=== PATIENT | female | born 1950 | race Caucasian/White ===

== ENCOUNTER 2020-05-13 02:21 | Outpatient (CLI) | payer MEDICARE, OTHER, SELFPAY ==
[2020-05-13 19:20] LABS: SARS-CoV-2 RNA PCR Negative
== END 2020-05-13 02:22 | disposition home or self-care (01) ==
LOC: ANHCOVIDDT 02:21
PROVIDERS: Visit Provider Internal Medicine Gastroenterology
DX: Z01.812 Encounter for preprocedural laboratory examination (principal); Z20.828 Contact with and (suspected) exposure to other viral communicable diseases
CPT/HCPCS: 87635; C9803; U0003

== ENCOUNTER 2020-05-15 01:47 | Day surgery (SDC) | payer MEDICARE, OTHER, SELFPAY ==
[2020-05-06 10:58] VITALS: BMI 29.0
--- NOTE | 2020-05-06 11:29 | PC.NURSE ---
Patient states she does not have a ride home. She gave me the name of a company in [place] called [employer] [phone]. I called the company and they said they do not sign hospital paperwork nor can they guarantee that the diver will walk the patient into the house to ensure their safety. Spoke at length with patient about asking a neighbor or her sister driving her home. Patient frustrated but states she will see what she can do to arrange a ride home.
--- NOTE | 2020-05-08 10:52 | PC.NURSE ---
0820 SPOKE WITH PATIENT REGARDING TRANSPORTATION, REITERATED SAFETY CONCERNS TO PATIENT AND REASONS FOR POLICY REGARDING [employer] AND ANESTHESIA. DID SPEAK TO PATIENT REGARDING THIS AT LENGTH, PT MADE AWARE THAT ANESTHESIA WILL ALLOW HER TO HAVE [facility] DRIVE HER HOME BUT THAT SHE MAY BE IN [place] LONGER THAN USUAL UNTIL RN FEELS SHE IS SAFE FOR DISCHARGE. I DID IMPRESS UPON HER THIS IS A SAFETY CONCERN FOR HER AND WE JUST WANT HER TO BE SAFE. I ALSO ENCOURAGED HER TO SPEAK WITH [facility] REGARDING THE FACT THAT SHE WILL BE HAVING ANESTHESIA TO BE CERTAIN THEY WILL TRANSPORT HER HER AFTER HAVING ANESTHESIA.
[2020-05-15 07:00] VITALS: BP 155/86; PULSE 88; RESP 18; TEMP 37; O2SAT 97; BMI 29.2
--- NOTE | 2020-05-15 07:02 | P.HP_ITS ---
History of Present Illness History of Present Illness Consent: Risks, benefits, and alternatives have been discussed and questions answered. Patient agrees to proceed with procedure. Chief complaint: pers hx polyps Narrative: Brittany Vernon is a 69 year old W female referred for screening colonoscopy secondary history of colonic polyps. Last colonoscopy was 5 years ago at which time a small adenomatous polyp was removed. There is no family history of colon polyps or colon cancer. Patient has had intermittent chronic diarrhea over the past 2 years. She states this started ever since she moved. She thinks this could be related to medications. [facility] Past Medical History Medical History (Updated 05/15/20 @ 07:06 by Bong Faustin MD) Deviated nasal septum Dyslipidemia GERD (gastroesophageal reflux disease) Hypertension Surgical History Surgical History (Updated 05/15/20 @ 07:04 by Bong Faustin MD) History of appendectomy History of tonsillectomy and adenoidectomy Social History Social History Smoking packs per day: 2 Smoking cigarettes per day: 40.0 Years smoked: 22 Smoking pack-years: 44.00 Smoking status: Former smoker Tobacco type: cigarettes Alcohol intake: current Drinks per week: 15 Living arrangements: alone Spiritual care concerns: No Meds Home Medications and Allergies Home Medications Medication Instructions Recorded Confirmed Type amlodipine 5 mg PO DAILY 05/06/20 05/15/20 History atorvastatin 20 mg PO DAILY 05/06/20 05/06/20 History hydrochlorothiazide 12.5 mg PO DAILY 05/06/20 05/06/20 History ibuprofen 600 mg PO Q6H PRN 05/06/20 05/06/20 History qgjxsdrgymxn-grme-ajquf acid 1 tablet PO DAILY 05/06/20 05/06/20 History [Centrum] omeprazole 20 mg PO DAILY 05/06/20 05/06/20 History Allergies Allergy/AdvReac Type Severity Reaction Status Date / Time No Known Allergies Allergy Mild Verified 07/20/10 12:25 Exam Const: Orientation/consciousness: patient oriented x3 Resp: Auscultation: clear to auscultation bilaterally Cardio: Rate: regular rate Rhythm: regular rhythm Heart sounds: no murmurs GI: GI Palp: Yes Soft to palpation, No Tenderness to palpation present (GI), Yes No hepatosplenomegaly present and No Palpable mass present Auscultation: normal bowel sounds Neuro: General: patient oriented x3 and no focal motor deficits Extrem: General: no pedal edema Assessment and Plan Additional Plan screening colonoscopy secondary history of colonic polyps
[2020-05-15] MEDS: LACTATED RINGERS 1,000 ML 150 ML IV CONT (07:18)
--- NOTE | 2020-05-15 07:22 | WPDANESEPPF ---
Anes - Initial Pre Proc Eval Procedure: Operation Date: 05/15/20 08:00 Proposed Procedures p Screening Colonoscopy - Bong Faustin MD Date/Time: 05/15/20 07:22 Surgeon: Bong Faustin MD Pre Op Diagnosis: pers hx polyps Patient Data Age: 69 Gender: F Height: 1.47 m Weight: 63.6 kg Last Vital Signs Temp 37.0 C 05/15/20 07:00 Pulse 88 05/15/20 07:00 Resp 18 05/15/20 07:00 BP 155/86 H 05/15/20 07:00 Pulse Ox 97 05/15/20 07:00 Allergies Allergy/AdvReac Type Severity Reaction Status Date / Time No Known Allergies Allergy Mild Verified 07/20/10 12:25 Home Medications Medication Instructions Recorded Confirmed Type amlodipine 5 mg PO DAILY 05/06/20 05/15/20 History atorvastatin 20 mg PO DAILY 05/06/20 05/06/20 History hydrochlorothiazide 12.5 mg PO DAILY 05/06/20 05/06/20 History ibuprofen 600 mg PO Q6H PRN 05/06/20 05/06/20 History ozxmgdfyrstn-waht-jfvdh acid 1 tablet PO DAILY 05/06/20 05/06/20 History [Centrum] omeprazole 20 mg PO DAILY 05/06/20 05/06/20 History Patient hx anesthesia problems: none Family hx anesthesia problems: none PMFSH Past Medical History Medical History (Updated 05/15/20 @ 07:23 by David Jacques MD) Deviated nasal septum Dyslipidemia GERD (gastroesophageal reflux disease) Hypertension Overweight (BMI 25.0-29.9) Surgical History Surgical History History of appendectomy History of tonsillectomy and adenoidectomy Social History Social History Smoking packs per day: 2 Smoking cigarettes per day: 40.0 Years smoked: 22 Smoking pack-years: 44.00 Smoking status: Former smoker Tobacco type: cigarettes Alcohol intake: current Drinks per week: 15 Living arrangements: alone Spiritual care concerns: No Anes - Eval Final PreProcedure Day of Procedure 05/15/20 07:22 Patient weight: overweight Heart: regular rate and rhythm Lungs: clear to auscultation and normal air movement Airway: Mallampati scale class II Neurological: alert and oriented Last oral intake: >/= 8 hours ASA classification: II Emergent: no Anesthetic plan: proceed Anesthesia type and monitoring: general GIVS Informed Consent: The patient's anesthetic plan and its attendant risks and benefits were discussed with the patient/family/POA. Questions were solicited and answers provided to the satisfaction of the patient/family/POA.
[2020-05-15 08:14] VITALS: BP 124/69; PULSE 84; RESP 18; O2SAT 98
[2020-05-15 08:24] VITALS: BP 111/67; PULSE 77; RESP 14; O2SAT 98
[2020-05-15 08:34] VITALS: BP 120/68; PULSE 75; RESP 20; O2SAT 97
== END 2020-05-15 09:07 | disposition home or self-care (01) ==
PROVIDERS: PCP Internal Medicine; Visit Provider Internal Medicine Gastroenterology
PROC: 0DJD8ZZ Inspection of Lower Intestinal Tract, Via Natural or Artificial Opening Endoscopic (ICD-10-PCS; CPT 45378; principal; 2020-05-15 08:00)
DX: Z12.11 Encounter for screening for malignant neoplasm of colon (principal); D12.3 Benign neoplasm of transverse colon; K57.30 Diverticulosis of large intestine without perforation or abscess without bleeding; K64.4 Residual hemorrhoidal skin tags; I10 Essential (primary) hypertension; E78.5 Hyperlipidemia, unspecified; K21.9 Gastro-esophageal reflux disease without esophagitis; Z87.891 Personal history of nicotine dependence
CPT/HCPCS: 45380; 88305; J2704; J7120

== ENCOUNTER 2020-08-10 15:59 | Outpatient (CLI) | payer MEDICARE, OTHER, SELFPAY ==
--- NOTE | ~2020-08-10 | CT_ITS ---
EXAMINATION: CT brain wo con DATE: 08/10/2020 16:21 INDICATION: Closed head trauma TECHNIQUE: Computed tomography (CT) of the head was performed without intravenous contrast. The mA wa s adjusted according to patient size. Iterative reconstruction technique was employed. Exam dose: 60 5.33 mGy-cm total exam DLP. COMPARISON: None FINDINGS: Vertebral and prominent bilateral carotid siphon and supraclinoid internal carotid artery c alcifications are noted. There are bilateral basal ganglia chronic lacunar infarcts. No intracranial mass lesion or hemorrhage or recent cerebrovascular accident is evident. CT is not se nsitive for detection of hyperacute ischemic cerebrovascular accident. No midline shift or mass effect. No subdural or epidural hematoma. No fracture or bone destruction of the cranial vault. The mastoid air cells and included paranasal si nuses are normally developed and aerated. IMPRESSION: Cerebral atherosclerosis and chronic small vessel ischemic changes of the cerebral white matter No skull fracture or acute intracranial finding Reviewed, dictated and finalized at [facility]. Reviewed, dictated and finalized at [facility]. [facility] [employer]
== END 2020-08-10 16:00 | disposition home or self-care (01) ==
DX: S09.90XA Unspecified injury of head, initial encounter (principal); I67.82 Cerebral ischemia; I67.2 Cerebral atherosclerosis
CPT/HCPCS: 70450

== ENCOUNTER 2023-04-28 17:09 | Outpatient (CLI) | payer MEDICARE, SELFPAY ==
--- NOTE | ~2023-04-28 | XR_ITS ---
EXAMINATION: XR chest 2V DATE: 04/28/2023 17:23 INDICATION: Right rib pain post fall with some shortness of breath and pain with inspiration TECHNIQUE: PA and lateral views of the chest were obtained. COMPARISON: None FINDINGS: Eventration along the anterior right hemidiaphragm. Mild linear discoid atelectasis at the lateral le ft lung base. No other airspace opacities, pulmonary edema, pleural effusion or pneumothorax. Mild th oracic kyphosis and mild lower thoracic levocurvature with mild anterior wedging of a lower thoracic vertebral body. Moderate thoracic and upper lumbar spondylosis. IMPRESSION: 1. Mild left basilar discoid atelectasis. No other acute cardiopulmonary disease. Reviewed, dictated and finalized at [facility]. IMPRESSION: 1. Mild left basilar discoid atelectasis. No other acute cardiopulmonary diseas e.
== END 2023-04-28 17:10 | disposition home or self-care (01) ==
LOC: ANHIMG 17:11
DX: S29.9XXA Unspecified injury of thorax, initial encounter (principal); J98.11 Atelectasis
CPT/HCPCS: 71046